=== PATIENT | female | born 1985 | race Caucasian/White ===

== ENCOUNTER 2022-05-05 15:09 | Emergency (ER) | payer OTHER ==
[2022-05-05 16:47] LABS: ADENOVIRUS F 40/41 Not Detected (Negative); ASTROVIRUS Not Detected (Negative); CAMPYLOBACTER Not Detected (Negative); E.COLI 0157 Not Detected (Negative); ENTAMOEBA HISTOLYTICA Not Detected (Negative); ENTEROPATHOGENIC E.COLI (EPEC) Not Detected (Negative); ENTEROTOXIGENIC E.COLI (ETEC) Not Detected (Negative); GIARDIA LAMBLIA Not Detected (Negative); NOROVIRUS GI/GII Not Detected (Negative); PLESIOMONAS SHIGELLOIDES Not Detected (Negative); ROTOVIRUS A Not Detected (Negative); SALMONELLA Not Detected (Negative); SAPOVIRUS Not Detected (Negative); SHIG/ENTEROINVAS.ECOLI (EIEC) Not Detected (Negative); SHIGA-LIK TOX.PRO.E.COLI (STEC Not Detected (Negative); VIBRIO Not Detected (Negative); VIBRIO CHOLERAE Not Detected (Negative); YERSINIA ENTEROCOLITICA Not Detected (Negative)
[2022-05-05 16:47] LABS: HEMOGLOBIN 14.1 gm/dl (12.3-15.3); RED BLOOD COUNT 4.57 M/UL (4.00-5.10); WHITE BLOOD COUNT 8.2 K/UL (4.5-11.0)
[2022-05-05 17:27] LABS: BUN/CREATININE RATIO 12 (0-10)
[2022-05-05 18:44] LABS: CLOSTRIDIUM DIFFICILE TOX A/B Not Detected (Negative); CRYPTOSPORIDIUM DETECTED (Negative); ENTEROAGGREGATIVE E.COLI (EAEC DETECTED (Negative)
[2022-05-05] MEDS ORDERED: CEFUROXIME500 MG PO (19:49)
[2022-05-05] MEDS ORDERED: ONDANSETRON ODT4 MG SL (19:49)
== END 2022-05-05 19:49 | disposition home or self-care (01) ==
LOC: ER1 15:09
PROVIDERS: Physician Assistant
DX: A04.4 Other intestinal Escherichia coli infections (principal); A07.2 Cryptosporidiosis; F17.290 Nicotine dependence, other tobacco product, uncomplicated
CPT/HCPCS: 80053; 81001; 84703; 85025; 87507; 96374; 99284; J2550; Q9967